=== PATIENT | female | born 1995 | race Caucasian/White ===

== ENCOUNTER 2021-05-31 06:31 | Emergency (ER) | payer MEDICAID, OTHER ==
[2021-05-31] MEDS ORDERED: Sodium Chloride 0.9% 10 ML Syringe FLUSH PRN (07:08)
[2021-05-31] MEDS ORDERED: Ondansetron 4 MG/2 ML SDV IVPUSH STA (07:10)
[2021-05-31] MEDS ORDERED: Atropine/Diphenoxylate 0.025-2.5 MG Tab PO ONE (07:21)
[2021-05-31] MEDS ORDERED: Sodium Chloride 0.9% 1,000 ML IV SCH (07:30)
[2021-05-31 08:12] LABS: CORONAVIRUS COVID-19 NAA NEGATIVE (NEGATIVE)
== END 2021-05-31 08:38 | disposition home or self-care (01) ==
LOC: FB.ED 06:31
DX: K52.9 Noninfective gastroenteritis and colitis, unspecified (principal); Z88.1 Allergy status to other antibiotic agents; Z20.822 Contact with and (suspected) exposure to COVID-19
CPT/HCPCS: 0240U; 36415; 80048; 85025; 96374; 99283; 99284; A9270; J2405; J7030